=== PATIENT | male | born 1980 | race Caucasian/White ===

== ENCOUNTER → 2022-01-22 | Outpatient (REF) | payer OTHER | LOC: M SFHCPLAZ 14:45 | PROVIDERS: ATTEND Family Medicine | DX: Z53.9 Procedure and treatment not carried out, unspecified reason (principal) ==

== ENCOUNTER → 2022-01-22 | Outpatient (CLI) | payer OTHER | LOC: M PLALAB 15:02 | PROVIDERS: ATTEND Family Medicine | DX: Z11.3 Encounter for screening for infections with a predominantly sexual mode of transmission (principal); Z13.220 Encounter for screening for lipoid disorders; Z13.1 Encounter for screening for diabetes mellitus; Z53.9 Procedure and treatment not carried out, unspecified reason ==

== ENCOUNTER → 2022-03-11 | Outpatient (REF) | payer OTHER ==
[2022-03-11 16:48] LABS: GC DNA AMPLIFICATION NEGATIVE (NEGATIVE)
== END ==
LOC: M SFHCPLAZ 09:23
PROVIDERS: ATTEND Family Medicine
DX: Z13.220 Encounter for screening for lipoid disorders (principal); Z13.1 Encounter for screening for diabetes mellitus; Z11.3 Encounter for screening for infections with a predominantly sexual mode of transmission; F90.2 Attention-deficit hyperactivity disorder, combined type

== ENCOUNTER → 2022-03-11 | Outpatient (CLI) | payer OTHER ==
[2022-03-11 14:01] LABS: CHOLESTEROL LEVEL 142 MG/DL (<200); CHOLESTEROL RISK RATIO 1.753 (<5); HDL CHOLESTEROL 81 MG/DL (>40); LDL CHOLESTEROL 53 MG/DL (<100); NON-HDL-C 61 MG/DL; TRIGLYCERIDES LEVEL 42 MG/DL (<150)
[2022-03-11 14:13] LABS: HEPATITIS B SURFACE ANTIBODY NEGATIVE (POSITIVE)
[2022-03-11 14:14] LABS: HEMOGLOBIN A1c 4.8 %
[2022-03-11 14:24] LABS: HEPATITIS B SURFACE ANTIGEN NEGATIVE (NEGATIVE)
[2022-03-11 14:52] LABS: HIV 1&2 SCREEN CENTAUR NEGATIVE (NEGATIVE)
[2022-03-11 15:01] LABS: HEPATITIS C VIRUS ABY INDEX > 11.0 INDEX (<0.8)
== END ==
LOC: M PLALAB 10:06
PROVIDERS: ATTEND Family Medicine
DX: Z13.1 Encounter for screening for diabetes mellitus (principal); Z13.220 Encounter for screening for lipoid disorders; F90.2 Attention-deficit hyperactivity disorder, combined type; Z11.3 Encounter for screening for infections with a predominantly sexual mode of transmission
CPT/HCPCS: 36415; 80061; 82077; 83036; 86706; 86780; 86803; 87340; 87389; 87522; G0480

== ENCOUNTER → 2022-04-12 | Outpatient (REF) | payer OTHER | LOC: M SFHCPLAZ 14:00 | PROVIDERS: ATTEND Family Medicine | DX: Z53.9 Procedure and treatment not carried out, unspecified reason (principal) ==